=== PATIENT | male | born 1960 | race Caucasian/White ===

== ENCOUNTER 2025-06-06 10:15 | Day surgery (SDC) | payer OTHER, SELFPAY ==
[2025-06-06] VITALS (8 sets, daily range): BP systolic 121–155; BP diastolic 60–75; BMI 34.2
[2025-06-06] MEDS: LOW STRENGTH ASPIRIN 324 MG PO (10:54)
[2025-06-06] MEDS: NSS 288 ML IV (11:25)
[2025-06-06] MEDS: NSS 1000 IV (15:09)
--- NOTE | 2025-06-06 15:12 | ITS.CL.CATH ---
[facility] - Catheterization
Cardiac Catheterization
Procedure Report:
RIGHT AND LEFT HEART STUDY
Date of Procedure: June 06, 2025
Referring: Dr. Klaus Dubose
PROCEDURES:
1. Right heart catheterization
2. Left heart catheterization with coronary and single-plane left ventriculography
INDICATION: Moderate aortic stenosis with profound dyspnea on exertion and exercise intolerance with episodes of near syncope
ACCESS: Right radial artery, 6 [place] sheath and right brachial vein, 6 [place] sheath
HEMODYNAMICS : mmHg
RA (m) : 10
RV (s/d) : 30/7, 14
PA (s/d, m) : 27/11, 20
PCWP (m) : 12
AO (s/d, m) : 124/68, 90
LV (s/d) : 143/11
LVEDP : 22
Estimated Robina Cardiac Output: 5.2 L / min and Cardiac Index: 2.5 L/ min / m-2
Systemic vascular resistance: 15.4 Wood units or 1231 [id number](-5)
Pulmonary vascular resistance: 1.5 Wood units or 123 [id number](-5)
AORTIC VALVE:
Mean Gradient.: 24
Aortic valve area: 1.3 cm�
CORONARY FINDINGS :
Dominance: Right
LEFT MAIN: Normal
LEFT ANTERIOR DESCENDING: The LAD arises normally from the left main and runs in the anterior interventricular groove. The LAD has only minor luminal irregularities over its course with no focal obstructive stenosis.
RAMUS: The ramus intermedius is a medium caliber vessel that bifurcates into 2 daughter branches in the mid vessel. Only minor irregularities are noted
CIRCUMFLEX: The circumflex is a medium caliber nondominant vessel that supplies a single sizable obtuse marginal branch. Minor luminal irregularities are noted
RIGHT CORONARY ARTERY: The RCA is a large-caliber dominant vessel that has only very mild luminal irregularities over its course. No obstructive coronary disease
VENTRICULOGRAPHY: Left ventriculography is performed in an ROBISON projection. The digital single-plane left ventricular ejection fraction is estimated at 65% and no regional wall motion abnormalities are noted
SEDATION: 45 minutes of procedural sedation was utilized. An independent medical technologist was present to assist with and help manage the patient's level of consciousness and physiologic status
RADIATION SUMMARY: Fluoro Time (min): 5.7, Dose (mGy): 519, DAP (Gy.cm2) : 34.5
CONCLUSIONS
1. Moderate aortic stenosis with mean aortic valve gradient of 24 mmHg
2. Compensated right and left ventricular filling pressures
3. Nonobstructive coronary disease with preserved LV systolic function
RECOMMENDATIONS
1. Patient will follow-up in our office in several weeks and then with Dr. Dubose in 4 to 6 months. He will continue to follow aortic valve gradients. Would anticipate need for aortic valve replacement in a few years but do not think symptoms
correspond to hemodynamically significant aortic stenosis
Copy to: Dr. Klaus Dubose
== END 2025-06-06 17:45 | disposition home or self-care (01) ==
LOC: CATH 10:15
PROVIDERS: ATTENDING PHYSICIAN Internal Medicine Interventional Cardiology; FAMILY PHYSICIAN Internal Medicine
DX: I35.0 Nonrheumatic aortic (valve) stenosis (principal); I25.10 Atherosclerotic heart disease of native coronary artery without angina pectoris; R55 Syncope and collapse; R06.09 Other forms of dyspnea
CPT/HCPCS: 99152; 99153; 93460; C1769; C1894; Q9967